=== PATIENT | female | born 1950 | race Caucasian/White ===

== ENCOUNTER 2022-03-06 08:14 | Outpatient (CLI) | payer MEDICARE, OTHER, SELFPAY ==
[2022-03-06 14:50] LABS: Alanine Aminotransferase* 16 U/L (4-35); Aspartate Amino Transferase* 26 U/L (12-35)
== END 2022-03-06 08:15 | disposition home or self-care (01) ==
PROVIDERS: PCP Physician Assistant Medical; Visit Provider Physician Assistant Medical
DX: R42 Dizziness and giddiness (principal); I10 Essential (primary) hypertension; R79.89 Other specified abnormal findings of blood chemistry; R32 Unspecified urinary incontinence; E66.01 Morbid (severe) obesity due to excess calories
CPT/HCPCS: 84443; 84450; 84460; 87086

== ENCOUNTER 2022-03-14 15:12 | Outpatient (CLI) | payer MEDICARE, OTHER, SELFPAY ==
[2022-03-14 15:37] LABS: Basophils Absolute Auto 0.02 K/uL (0.00-0.30); Basophils Percent Auto 0.2 % (0.0-3.0); Eosinophils Absolute Auto 0.17 K/uL (0.00-0.50); Hematocrit 47.5 % (33.0-51.0); Hemoglobin* 15.7 gm/dL (12.0-16.0); Lymphocytes Absolute Auto 2.21 K/uL (0.90-2.90); Lymphocytes Percent Auto 26.2 % (20-44); Mean Corpuscular HGB Conc 33 gm/dL (32-36); Mean Corpuscular Hemoglobin 29 pg (26-34); Mean Corpuscular Volume 88 fL (80-100); Monocytes Absolute Auto 0.79 K/UL (0.00-0.90); Monocytes Percent Auto 9.3 % (0.0-11.0); Neutrophils Absolute Auto 5.26 K/uL (1.7-7.0); Neutrophils Percent Auto 62.3 % (42.0-72.0); Platelet Count* 161 K/uL (140-440); White Blood Count* 8.45 K/uL (4.50-11.00)
[2022-03-14 15:57] LABS: Slide Review Reflex No
[2022-03-14 22:03] LABS: Albumin* 4.5 g/dL (3.3-5.0); Chloride* 103 mmol/L (96-114)
[2022-03-14 22:04] LABS: Potassium* 4.9 mmol/L (3.6-5.1); Sodium* 138 mmol/L (135-149)
[2022-03-14 22:06] LABS: Aspartate Amino Transferase* 39 U/L (12-35); Bilirubin Total* 0.8 mg/dL (0.1-1.5); Carbon Dioxide* 23 mmol/L (20-32); Creatinine* 1.3 mg/dL (0.5-1.5); Estimated Glomerular Filt Rate 44 ml/min; Total Protein* 7.4 g/dL (6.0-8.3)
[2022-03-14 22:07] LABS: Alanine Aminotransferase* 18 U/L (4-35); Alkaline Phosphatase* 89 U/L (40-150); Blood Urea Nitrogen* 39 mg/dL (7-30); Calcium* 9.9 mg/dL (8.4-10.6); Glucose* 91 mg/dL (60-115)
== END 2022-03-14 15:13 | disposition home or self-care (01) ==
PROVIDERS: PCP Physician Assistant Medical; Visit Provider Family Medicine
DX: Z01.818 Encounter for other preprocedural examination (principal); R42 Dizziness and giddiness; F32.1 Major depressive disorder, single episode, moderate
CPT/HCPCS: 80053; 84443; 85025

== ENCOUNTER 2022-03-29 07:01 | Outpatient (CLI) | payer MEDICARE, OTHER, SELFPAY ==
--- NOTE | 2022-03-29 08:17 | W.ANESCHARGE ---
Anesthesia Charges Start Date/Time Anesthesia Start Date: 03/29/22 Anesthesia Start Time: 07:40 Stop Date/Time Anesthesia Stop Date: 03/29/22 Anesthesia Stop Time: 08:15 Summary Emergency: No Extremes of Age: Over 72-CPT 93838
--- NOTE | 2022-03-29 09:02 | W.ANESCHARGE ---
Anesthesia Charges Start Date/Time Anesthesia Start Date: 03/29/22 Anesthesia Start Time: 07:40 Stop Date/Time Anesthesia Stop Date: 03/29/22 Anesthesia Stop Time: 08:15 Summary Emergency: No Extremes of Age: Over 72-CPT [id number]
== END 2022-03-29 07:02 | disposition home or self-care (01) ==
LOC: OP CLINIC 07:02
PROVIDERS: PCP Physician Assistant Medical; Visit Provider Internal Medicine
DX: Z12.11 Encounter for screening for malignant neoplasm of colon (principal); K64.8 Other hemorrhoids; Z86.010 Personal history of colon polyps
CPT/HCPCS: 00812; 45378; 99100; J2405; J2704

== ENCOUNTER 2023-04-03 13:42 | Outpatient (CLI) | payer MEDICARE, OTHER, SELFPAY | END 2023-04-03 13:43 | disposition home or self-care (01) | PROVIDERS: PCP Physician Assistant Medical; Visit Provider Family Medicine | DX: I42.9 Cardiomyopathy, unspecified (principal); E66.01 Morbid (severe) obesity due to excess calories; R79.89 Other specified abnormal findings of blood chemistry | CPT/HCPCS: 80053; 80061; 82043; 82570 ==

== ENCOUNTER 2023-07-30 13:58 | Outpatient (CLI) | payer MEDICARE, SELFPAY ==
--- NOTE | 2023-07-30 14:00 | CRLHL7_ITS ---
For Patients: As a result of the Century Cures Act, medical imaging exams and procedure reports are released immediately into your electronic medical record. You may view this report before your referring provider. If you have questions, please contact your health care provider. DXA BONE MINERAL DENSITY STUDY Current height (in): 67.0. Weight (lb): 299.0. Menopause age: Not provided. Ethnicity: White. Reason for exam: Osteopenia. 1. Have you had a previous hip or vertebral fracture? No. 2. Have you had any fractures during your adult life which did not result from significant trauma (e.g., auto accident)? No. 3. Did either of your parents have a hip fracture? No. 4. Do you smoke? No. 5. Have you ever taken Glucocorticoids? No. 6. Do you have rheumatoid arthritis? No. 7. Do you have secondary osteoporosis? No. 8. Do you drink 3 or more alcoholic drinks per day? No. 9. Are you being treated for osteoporosis? No. 10. Have you ever taken any of the following medications: Actonel, Evista, Fosamax, Miacalcin, Reclast, Boniva, Forteo, HRT (i.e. estrogen/hormone therapy), Protelos, Prolia, Vitamin D, Calcium, other ??? please specify. ANSWER: No. 11. Do you have any of the following medical conditions: Anorexia or bulimia, asthma or emphysema, end stage renal disease, hyperparathyroidism, any seizure disorders, cancer, inflammatory bowel diseases, hysterectomy, other ??? please specify. ANSWER: Yes, asthma or emphysema. 12. What was your maximum height (inches)? 68. 13. Do you perform weight bearing exercise regularly? Yes. 14. Do you regularly consume dairy products? Yes. 15. Do you drink caffeinated beverages? Yes. 16. At what age did your period start? 12. 17. Are you premenopausal? No. 18. How many full term pregnancies have you had? 3. 19. Have you ever missed your period for more than 6 months in a row (not including or menopause)? Not provided. TECHNIQUE: Bone mineral density study was performed using the [employer]. FINDINGS: The results of the study expressed as bone mineral density (BMD) are as follows: Lumbar spine L1 to L4: BMD: 1.176 g/cm2. T-score: 1.2. Z-score: 3.4 Neck Left: BMD: 0.865 g/cm2. T-score: 0.1. Z-score: 2.0 Right: BMD: 0.818 g/cm2. T-score: -0.3. Z-score: 1.6 Total Left: BMD: 0.953 g/cm2. T-score: 0.1. Z-score: 1.7 Right: BMD: 1.001 g/cm2. T-score: 0.5. Z-score: 2.1 *Comparison exams done prior to 11/2019 were performed on different unit, [employer] COMPARISON: Compared with scan of 02/22/2019, the bone mineral density has increased by 1.6 percent at the spine and increased by 1.5 percent at the hip. IMPRESSION: Normal bone density. Maverick Garcia M.D. Diagnostic Radiologist [email or web address] Transcribed: 4:24 pm DW/Dictated by: Maverick Garcia MD @ 07/30/2023 3:47:00 PM (Electronically Signed)
--- NOTE | 2023-07-30 14:40 | CRLHL7_ITS ---
For Patients: As a result of the Century Cures Act, medical imaging exams and procedure reports are released immediately into your electronic medical record. You may view this report before your referring provider. If you have questions, please contact your health care provider. BILATERAL SCREENING MAMMOGRAM WITH COMPUTER-AIDED DETECTION TECHNIQUE: CC and MLO views were obtained. These mammographic images have been obtained using full-field digital technique. These mammographic images were interpreted with the benefit of computer-aided detection. COMPARISON FILM: 02/22/19, 05/13/16, 05/14/13. FINDINGS: The breasts are almost entirely fatty. IMPRESSION: There is no radiographic evidence for malignancy. ASSESSMENT: BI-RADS Category 2: Benign RECOMMENDATION: Routine screening mammogram in 1 year. A lay language report of this examination will be provided to the patient. Maverick Garcia M.D. Diagnostic Radiologist [email or web address] SP/Dictated by: Maverick Garcia MD @ 07/31/2023 11:25:00 AM (Electronically Signed)
== END 2023-07-30 13:59 | disposition home or self-care (01) ==
PROVIDERS: PCP Physician Assistant Medical; Visit Provider Family Medicine
DX: Z12.31 Encounter for screening mammogram for malignant neoplasm of breast (principal); M85.80 Other specified disorders of bone density and structure, unspecified site; Z78.0 Asymptomatic menopausal state
CPT/HCPCS: 77067; 77080

== ENCOUNTER 2024-04-07 14:34 | Outpatient (CLI) | payer MEDICARE, SELFPAY | END 2024-04-07 14:35 | disposition home or self-care (01) | LOC: NFLDREF 04-09 09:32 | PROVIDERS: PCP Physician Assistant Medical; Referring Provider Physician Assistant Medical; Visit Provider Physician Assistant Medical | DX: R32 Unspecified urinary incontinence (principal); R79.89 Other specified abnormal findings of blood chemistry; I63.9 Cerebral infarction, unspecified; I42.9 Cardiomyopathy, unspecified; F33.9 Major depressive disorder, recurrent, unspecified; G47.33 Obstructive sleep apnea (adult) (pediatric); K21.9 Gastro-esophageal reflux disease without esophagitis; Z13.9 Encounter for screening, unspecified; Z95.810 Presence of automatic (implantable) cardiac defibrillator | CPT/HCPCS: 80053; 80061; 84443 ==

== ENCOUNTER 2024-05-07 08:30 | Outpatient (RCR) | payer MEDICARE, SELFPAY ==
--- NOTE | 2024-03-12 09:50 | PT.OPEX ---
PT [place] Outpatient Eval PT [facility] Outpatient Eval Start: 03/12/24 08:11 Freq: Status: Active Protocol: Document 03/12/24 08:12 ARR (Rec: 03/12/24 09:46 ARR [id number]) E-signed By Yvonne Ny DPT Physical Therapy Outpatient Evaluation Insurance Information Recert Due Date 06/10/24 Insurance Name Medicare B Medical Diagnosis R32 unspecified urinary incontinence Treating Diagnosis N39.46 Mixed incontinence ( Urge and stress incontinence) R27.8 Lack of coordination ( muscle incoordination) K59.00 Constipation, unspecified Referring BENITO Maria ([facility]) Subjective Preferred Name ELLEN Subjective -Subjective: Concerns of urinary leakage for years, at least 5 years. Getting worse and worse. Now can't drink coffee or coke - will causes more leakage. Can leak down leg even. Does do kegels until blue in the face -Urinary: Doesn't drink past 8pm. Goes to bed at 11pm --Frequency of leakage: Daily --Protection worn: Incontinent pad. Changes 4x/day --Severity of leakage: 3x/wk will leak to undergarments --Activity that causes leakage : none. --Delay of urination: Unable --Urinary urgency (any incontinence): yes --Strain to start or stop urine stream: no straining. Complete emptying --Daytime urination: Goes a lot just in case to prevent leakage, urinates 6-8x. --Nocturia: Does leak at night , pad will be full in the AM. Doesn't know she leaked. Nocturia 0x. --Hydration: 38-42 oz water / coffee tries to do every other day 12-18 oz / Pop occasionally (325#) --Pressure/heaviness: no symptoms of it but knows she has it --Triggers: walking through the front door - first stop always when returning. -Bowel: --Frequency: 1x/day --Kenvir chart: type 2-3 --Constipation: no --Do you feel bowels fully evacuate with BM: yes --Fecal leakage: no --Fecal urgency: no --Straining with BM: yes --Flatus incontinence: yes --Do you take bowel supplements: no -Sexual: not active -Menstrual history: Had painful periods due to endo --Changes after menopause: no estrogen --Menopause age: 52 yrs old -: G/P 5/3 vaginally --Length of labor/pushing: can 't remember --Forceps or vacuum: no --Tearing or episiotomy: 10# episiotomy with all OTHER: --Any chronic yeast infections : no --Chronic UTIs: 1x/year --Vaginal dryness: no --Meds: oxybutynin (prior to this using 7-8 pads, now 4-5. Started x1 month ago) -Surgical PMHx: appendectomy - appendix was full of endo, cholecystectomy -PMHx: ischemic stroke 2002, cardiac defibrillator, major depressive disorder, cardiomyopathy, migraine, plantar fasciitis, GERD, uterine prolapse, osteopenia, sleep apnea, endo -Current exercise: no -Orthopedic issues: none -Goals: get rid of leakage, less pad use Objective Other/Pertinent Objective VAGINAL INTERNAL EXAM 03/12/24: -Prolapse: not visible externally -Cough: nil -Lifting contraction: nil -Bulge: nil -Visual: increased erythema noted over vestibule. Resoprtion of labia minora nearly completely. POPQ (performed pt hooklying with cue to ?bear down and hold breath as though having a BM? or ?bear down.? Bear down sustained 6-8 sec x 3 for first measure then 1-3 reps for subsequent measures. -LH (GH+PB): not tested -Aa: 0 -Ba: 0 Tenderness/pain to palpation/ tone: -Layer 3: iliococcygeus Inc?d tone, no TTP OTHER: reduced palpable CO/PC bilaterally at muscle belly and posterior PS. Strength ( R / C / L): -Power (MMT): 3 -Endurance: 4 -Reps: 2 -Fast twitch: nt -Relaxation of PFM after quick contractions: delayed Minimal squeeze noted Other: -Distance btw CO muscle bellies: 3.5 finger widths -Breathing examination: dec?d posterior and lateral ribcage mvmt with inhalation Functional Test Performed & Score PFQ: -Bladder 23/45 -Bowel: 3 -Prolapse: 6 TOTAL: 32 + Assessment Assessment/Impression Pt is a 74 y/o female who presents with concerns of urinary leakage. Signs and symptoms likely indicating / consistent with mixed incontinence with unknown instances of leakage, night- time leakage, and associated with dietary irritants. Patient also has notable objective findings including 3 /5 PFM contraction with minimal squeeze noted, irritated vestibule with erythema noted and resorption of labia minora, increased width of CO muscle 3.5 finger widths, descent of anterior wall to level of hymen also likely contributing to the problem. Pt also has underlying constipation also likely fueling urinary leakage in addition to estrogen deficient tissue. Patient is a good candidate for skilled therapy to target deficits described above. Skilled PT intervention is necessary for use of therapeutic exercise manual therapy, neuromuscular re-education, gait training, and therapeutic activity. Functional impairments include difficulty with: urinary leakage/tissue health compromise. See appropriate sections of PT eval for complete list of goals and POC . D/C plan and criteria is for pt to achieve the goals as listed below or until max rehab potential is met. Pt was agreeable with plan of care and goals established. Evaluation and internal vaginal PFM assessment/ treatment with patient consent was requested and obtained. Plan of Care Rehabilitation Potential Good Physical Therapy Goals STG (within 7 visits) 1) Pt will demonstrate proper coordination of motor recruitment patterns for PF then TA activation during isometric activation while maintaining diaphragmatic breathing pattern 2)Pt will recall at least 4 strategies to improve pressure management in order to reduce instances of incontinence outside PT sessions 3) Pt will report reduced urinary leakage episodes no more than 2 per day for improved health of vaginal tissues 4) Pt will report volume of fluid loss with incontinence not exceeding pad capacity 12/ 14 days ? LTG (within 14 visits) 1) Pt will demonstrate proper coordination of motor recruitment patterns for PF then TA activation during dynamic UE/LE movements in all postures while maintaining diaphragmatic breathing pattern 2) Pt will report reduced urinary leakage episodes no more than 3x per week for improved health of vaginal tissues 3) Pt will demonstrate PFQ subscale score bladder, bowel, prolapse <25 for improved quality of life. 4) Pt will report improved hydration at least 100 ounces to improve bladder health 5) Pt will report improved stool type 3-4 without straining to empty Treatment Plan/Direct Interventions Biofeedback,Electrical Stimulation,Joint Mobilization ,Manual Therapy,Neuromuscular Re-ed,Self-Care/Home Management,Therapeutic Exercises Frequency/Duration 1x/wk x 14 visits in 90 days Patient Will Be Discharged From Therapy Skills [facility],Independent w/ HEP Evaluation Billing Untimed Code Treatment Minutes 30 Complexity Low Certification Information Initial Certification Date 03/12/24 Ending Certification Date 06/10/24 Provider Signature Required Yes Provider Signature Shows Agreement With POC & Medical Necessity Physician NPI Number Write NPI# Here Physician Comment/Change : Physician Signature & Date Requested Please Sign/Date Here
== END 2024-08-03 11:09 | disposition home or self-care (01) ==
PROVIDERS: PCP Physician Assistant Medical; Visit Provider Physician Assistant Medical
DX: N39.46 Mixed incontinence (principal); R27.8 Other lack of coordination; K59.00 Constipation, unspecified; Z51.89 Encounter for other specified aftercare
CPT/HCPCS: 97110; 97112; 97161; 97535

== ENCOUNTER 2025-04-21 10:42 | Outpatient (CLI) | payer MEDICARE, SELFPAY | END 2025-04-21 10:43 | disposition home or self-care (01) | LOC: NFLDREF 04-23 18:36 | PROVIDERS: PCP Physician Assistant Medical; Referring Provider Physician Assistant Medical; Visit Provider Physician Assistant Medical | DX: F32.1 Major depressive disorder, single episode, moderate (principal); I42.9 Cardiomyopathy, unspecified; Z13.9 Encounter for screening, unspecified; K21.9 Gastro-esophageal reflux disease without esophagitis; R32 Unspecified urinary incontinence | CPT/HCPCS: 80053; 80061; 84443 ==

== ENCOUNTER 2025-06-15 14:00 | Outpatient (CLI) | payer MEDICARE, SELFPAY | END 2025-06-15 14:01 | disposition home or self-care (01) | LOC: NFLDREF 06-20 10:06 | PROVIDERS: PCP Physician Assistant Medical; Referring Provider Physician Assistant Medical; Visit Provider Physician Assistant Medical | DX: R19.7 Diarrhea, unspecified (principal) | CPT/HCPCS: 80053; 80061; 82306; 82607 ==